=== PATIENT | female | born 1990 | race Caucasian/White ===

== ENCOUNTER 2021-08-01 09:16 | Emergency (ER) | payer OTHER ==
[~2021-08-01] VITALS: Ht 162.6 cm; Wt 72.6 kg
[2021-08-01] MEDS ORDERED: PREDNISONE20 MG PO (09:45)
[2021-08-01] MEDS ORDERED: CEPHALEXIN500 M1 PO (09:45)
== END 2021-08-01 10:02 | disposition home or self-care (01) ==
LOC: ED 09:16
DX: L03.111 Cellulitis of right axilla (principal); R59.1 Generalized enlarged lymph nodes
CPT/HCPCS: 99283

== ENCOUNTER 2022-05-10 18:25 | Emergency (ER) | payer OTHER ==
[~2022-05-10] VITALS: Ht 162.6 cm; Wt 86.2 kg
[~2022-05-10 18:25] MED LIST: CEPHALEXIN500 M1 PO; PREDNISONE20 MG PO
[2022-05-10] MEDS ORDERED: CEPHALEXIN500 M1 PO (20:51)
[2022-05-10] MEDS ORDERED: HYDROCODON-ACE1 EA10 PO (20:51)
== END 2022-05-10 21:13 | disposition home or self-care (01) ==
LOC: ED 18:25
DX: S91.332A Puncture wound without foreign body, left foot, initial encounter (principal); W01.10XA Fall on same level from slipping, tripping and stumbling with subsequent striking against unspecified object, initial encounter
CPT/HCPCS: 73630; 90471; 90715; 99283-25; A9270

== ENCOUNTER 2025-02-10 16:29 | Emergency (ER) | payer OTHER ==
[~2025-02-10] VITALS: Ht 162.6 cm; Wt 63.5 kg
[~2025-02-10 16:29] MED LIST changes: +HYDROCODON-ACE1 EA10 PO; +MEGESTROL625 MG/5 M PO
[2025-02-10] MEDS ORDERED: LIDOCAINE/RACEPINEP/TETRACAINE 3 ML SYR TOP ONE (19:45)
[2025-02-10] MEDS ORDERED: DIPHTH,PERTUSS(ACELL),TET VAC 0.5 ML SYRINGE IM ONE (19:45)
[2025-02-10] MEDS ORDERED: AMOX TR-K CLV1 EAC1 PO (20:51)
[2025-02-10] MEDS ORDERED: TRAMADOL HCL 50 MG HOME.PACK PO ONE (21:00)
[2025-02-10] MEDS ORDERED: AMOXICILLIN/CLAVULANATE K 875 MG HOME.PACK PO ONE (21:00)
[2025-02-10 21:13] VITALS: BP 128/87
== END 2025-02-10 21:14 | disposition home or self-care (01) ==
LOC: ED 16:29
DX: S51.852A Open bite of left forearm, initial encounter (principal); S51.851A Open bite of right forearm, initial encounter; S61.259A Open bite of unspecified finger without damage to nail, initial encounter; Z79.899 Other long term (current) drug therapy; W55.01XA Bitten by cat, initial encounter
CPT/HCPCS: 90471; 90715; 99283-25; A9270